=== PATIENT | female | born 1965 | race African-American/Black ===

== ENCOUNTER 2017-06-18 10:13 | Emergency (ER) | payer MEDICAID ==
[~2017-06-18] VITALS: Ht 170.2 cm; Wt 63.5 kg
[2017-06-18] MEDS ORDERED: IBUPROFEN 800 MG TABLET PO ONE (11:00)
[2017-06-18 14:10] VITALS: BP 122/72
== END 2017-06-18 14:25 | disposition home or self-care (01) ==
LOC: EMS 10:15
DX: S60.221A Contusion of right hand, initial encounter (principal); W01.0XXA Fall on same level from slipping, tripping and stumbling without subsequent striking against object, initial encounter; Y93.89 Activity, other specified; Y92.89 Other specified places as the place of occurrence of the external cause; Y99.8 Other external cause status
CPT/HCPCS: 99284